=== PATIENT | female | born 2000 | race Two or more races ===

== ENCOUNTER 2020-05-15 07:00 | Emergency (ER) | payer BC ==
[~2020-05-15] VITALS: Ht 165.1 cm; Wt 65.0 kg
[2020-05-15 07:04] VITALS: BP 119/63
== END 2020-05-15 09:42 | disposition home or self-care (01) ==
LOC: ER 07:01
DX: U07.1 COVID-19 (principal)
CPT/HCPCS: 36415; 87635; 99283